=== PATIENT | male | born 2000 | race Caucasian/White ===

== ENCOUNTER → 2020-03-07 10:13 | Outpatient (CLI) | payer BC, SELFPAY ==
--- NOTE | ~2020-03-07 | US_ITS ---
US abdomen complete INDICATION: Generalized abdominal pain PROCEDURE: Realtime right upper abdominal ultrasound. COMPARISON: No prior studies for comparison. FINDINGS: The pancreas is normal without focal mass or pancreatic ductal dilation. Liver echotexture is normal without focal mass or intrahepatic biliary dilatation. There is normal directional flow i n the portal vein. Gallbladder contains an echogenic nonmobile, nonshadowing 6 mm mass consistent with a polyp. No galls tones, gallbladder wall thickening or pericholecystic fluid. Common bile duct measures 2 mm. No son ographic Jinag's sign. Visualized aspects of the abdominal aorta and IVC are normal. Spleen is normal. Renal echotexture wit hin normal limits bilaterally without hydronephrosis, contour deforming mass or renal calculi. Right kidney measures 9.5 cm. Left kidney measures 10.5 cm. IMPRESSION: 1: Gallbladder polyp measuring 6 mm. Otherwise, unremarkable abdominal ultrasound. Reviewed, dictated and finalized at location A. CTOR SALES SUPPORT IMPRESSION: 1: Gallbladder polyp measuring 6 mm. Otherwise, unremarkable abdominal ultrasou nd.
== END ==
PROVIDERS: PCP Nurse Practitioner Family; Visit Provider Nurse Practitioner Family
DX: R10.9 Unspecified abdominal pain (principal); R11.2 Nausea with vomiting, unspecified; K82.4 Cholesterolosis of gallbladder
CPT/HCPCS: 76700

== ENCOUNTER 2024-10-01 21:16 | Emergency (ER) | payer BC, SELFPAY ==
--- NOTE | ~2024-10-01 | US_ITS ---
US scrotum doppler INDICATION: Bilateral testicular pain. Evaluate for torsion. TECHNIQUE: Testicular sonogram utilizing grayscale and color Doppler FINDINGS: The testes are normal in size and appearance. No focal lesions are seen. The right testes measures 4.2 x 4 x 2.1 cm centimeters, and the left testis measures 3.5 x 1.7 x 2.8 cm cm. There is n ormal vascular flow to both testes. The right and left epididymides appear normal. Small left hydrocele. No evidence for varicocele. IMPRESSION: 1. Small left hydrocele. Reviewed, dictated and finalized at location A. IMPRESSION: 1. Small left hydrocele.
--- OUTSIDE RECORDS SUMMARY | 2024-10-01 21:18 | XMS_ITS | Clinical Summary ---
Author Organization [facility] Address [address] [place] [address] Care Team Providers Care Mainspring Fabrication Supervisor Name Role Phone Alana Rivera MD Primary Care Provider [phone] Allergies No known active allergies Medications dicyclomine (BENTYL) 10 MG Capsule Take 1 Capsule by mouth 3 times daily as needed (Abdominal cramping). 90 Capsule 3 2 Active PEG 6145-WYx-CiYzs- NaCl-NaSulf 240 g Recon Soln Use as directed by office 4000 mL 2 Active fluticasone (Flovent HFA) 220 MCG/ACT Aerosol take 4 Puffs by inhalation 2 times daily. Squirt in back of throat and swallow. Nothing to eat or drink 30 min after. 12 g 6 2 Active omeprazole (PriLOSEC) 20 MG CAPSULE DELAYED RELEASE Take 1 Capsule by mouth 2 times daily. 180 Capsule 2 2 Active Active Problems No known active problems Immunizations Immunization Administration Dates Next Due Influenza Vaccine, Quadrivalent, PF 11/29/2021,1 03/30/2013 Meningococcal Vaccine 09/26/2016 Varicella Vaccine Live 11/28/2013 Social History Tobacco Use Types Packs/Day Years Used Date Smoking Tobacco: Every Day Smokeless Tobacco: Never Tobacco Cessation:Ready to Q uit: No; Counseling Given: No Alcohol Use Standard Drinks/Week Comments Yes 3 (1 standard drink = 0.6 oz pur e alcohol) Sex and Gender Information Value Date Recorded Sex Assigned at Not on file Legal Sex Male 5:07 PM LACE BURN OUT TENDER Gender Identity Not on file Sexual Orientation Not on file Last Filed Vital Signs Vital Sign Reading Time Taken Comments Blood Pressure 110/61 02/15/2022 5:12 PM LACE BURN OUT TENDER Pulse 51 02/15/2022 5:12 PM LACE BURN OUT TENDER Temperature 36.2 C (97.2 F) 02/15/2022 4:41 PM LACE BURN OUT TENDER Respiratory Rate 16 02/15/2022 5:12 PM LACE BURN OUT TENDER Oxygen Saturation 100% 02/15/2022 5:12 PM LACE BURN OUT TENDER Inhaled Oxygen Concentration - - Weight 63.5 kg (140 lb) 02/15/2022 2:37 PM LACE BURN OUT TENDER Height 170.2 cm (5' 7) 02/15/2022 2:37 PM LACE BURN OUT TENDER Body Mass Index 21.93 02/15/2022 2:37 PM LACE BURN OUT TENDER Plan of Treatment Health Maintenance Due Date Last Done Comments Hepatitis C Virus (HCV) Screening 1999 TdaP Immunization 1999 Human Papillomavirus (HPV) Immunization (1 - Male 3-dose series) 10/13/2014 Hepatitis B Immunization (1 of 3 - 19+ 3-dose series) 10/13/2018 SARS-COV-2 Immunization ( season) 2023 03/30/2021, 07/08/2020, 06/17/2020 Influenza Immunization (#1) 11/11/202411/11, 01/28/2014 Respiratory Syncytial Virus (RSV) Immunization (Adult) (1 - 1-dose 75+ series) 10/13/2074 Meningococcal Immunization (ACWY) Completed 09/26/2016 Pneumococcal Immunization Combined Aged Out No longer eligible b ased on patient's age to complete this topic Rotavirus Immunization Aged Out No lo nger eligible based on patient's age to complete this topic Insurance [facility] Care Teams Mainspring Fabrication Supervisor Relationship Specialty Start Date End Date Alana Rivera MD [address] [place] [address] PCP - General Sports Medicine 04/10/19
--- OUTSIDE RECORDS SUMMARY | 2024-10-01 21:18 | XMS_ITS | Encounter Summary ---
Author Organization [facility] Address [address] [place] [address] Phone Care Team Providers Care Contracting Engineer Name Role Phone Alana Rivera MD Primary Care Provider [phone] Encounter Details Date Type Department Care Team (Late st Contact Info) Description 06/10/2020 Lab Requisition [facility] [address] [place] [address] Alana Rivera MD [address] [place] [address] Social History Tobacco Use Types Packs/Day Years Used Date Smoking Tobacco: Never Assessed Sex and Gender Information Value Date Recorded Sex Assigned at Not on file Legal Sex Male 5:07 PM DREDGE OR BARGE SHORE HAND Gender Identity Not on file Sexual Orientation Not on file documented as of this encounter Plan of Treatment Not on file documented as of this encounter Procedures Procedure Name Priority Date/Time Associated Diagnosis Comments SARS-COV-2 BY MOLECULAR Routine 06/10/2020 12:20 PM CDT documented in this encounter Results * SARS-COV-2 BY MOLECULAR (06/10/2020 12:20 PM CDT) SARSCOV2 NOT DETECTED (Referen ce Range for this test is Not Detected ) [facility] THERMOFISHER FAST DX 06/10/2020 8:23 PM CDT [facility] Comment:This test was perfor med by a RT-PCR method. Other 06/10/2020 12:2 0 PM CDT 06/10/2020 2:51 PM CDT Narrative [facility] - 06/10/2020 8:23 PM CDT Authorized Fact Sheets about this test for providers and patients are available at: https://www.fda.gov/medical-devices/xvpndhmgs-ynxsvxaqeh-hxawzge-devices/emergen -us e-authorizations us Alana Rivera MD MICROBIOLOGY - [facility] Final Result [facility] [address] [address], [place] documented in this encounter Visit Diagnoses Not on filedocumented in this encounter Additional Health Concerns Infection Onset Date Last Indicated Resolved Time COVID - 19 06/10/2020 06/10/2020 06/30/2020 12:1 8 AM CDT documented as of this encounter Care Teams Contracting Engineer Relationship Specialty Start Date End Date Alana Rivera MD [address], [place] [address] PCP - General Sports Medicine 04/10/19 documented as of this encounter
--- OUTSIDE RECORDS SUMMARY | 2024-10-01 21:18 | XMS_ITS | Clinical Summary ---
Author Organization [facility] Address [address] [place] [address] Care Team Providers Care Supervisor Poultry Processing Name Role Phone Radha Washington MD Primary Care Provider [phone] Source Comments [facility],non-owned Affiliates and Associated Physician Practices is amultiple site organization consisting of ambulatory clinics and hospital sitesin [place], [place], [place] and [place]. This disclosure is being madepursuant to the Care Everywhere program and may not contain all information available regarding this patient. Last updated 17.[facility] Allergies No known active allergies Medications * Be aware that medications may not be up to date on this document. Alwaysverify current medications with the patient. No known medications Social History Tobacco Use Types Packs/Day Years Used Date Smoking Tobacco: Never Assessed Sex and Gender Information Value Date Recorded Sex Assigned at Not on file Legal Sex Male 3:16 PM SOFT SUGAR SUPERVISOR Gender Identity Not on file Sexual Orientation Not on file Last Filed Vital Signs Vital Sign Reading Time Taken Comments Blood Pressure 118/53 05/18/2012 4:30 PM SOFT SUGAR SUPERVISOR Pulse 76 05/18/2012 4:30 PM SOFT SUGAR SUPERVISOR Temperature 36.1 C (97 F) 05/18/2012 4:30 PM SOFT SUGAR SUPERVISOR Respiratory Rate 16 05/18/2012 4:30 PM SOFT SUGAR SUPERVISOR Oxygen Saturation - - Inhaled Oxygen Concentration - - Weight 47.8 kg (105 lb 6.1 oz) 05/18/2012 4:30 P M SOFT SUGAR SUPERVISOR Height - - Body Mass Index - - Plan of Treatment Health Maintenance Due Date Last Done Comments HIV SCREENING 10/13/2014 HPV VACCINE (1 - Male 3-dose series) 10/13/2014 HEPATITIS C SCREENING 10/09/2017 DTAP/TDAP/TD VACCINES (1 - Tdap) 10/13/2018 HEPATITIS B VACCINE (1 of 3 - 19+ 3-dose series) 10/13/2018 COVID-19 VACCINE (1 - 2023-2 5 season) 2023 DEPRESSION SCREENING 03/13/2024 INFLUENZA VACCINE (#1) 2024 ZOSTER VACCINE (1 of 2) 10/13/2049 HIB VACCINE Aged Out No longer eligi ble based on patient's age to complete this topic MENINGOCOCCAL (Group B) VACC INE SHARED DECISION-MAKING Aged Out No longer eligibl e based on patient's age to complete this topic MENINGOCOCCAL GROUPS A/C/Y/W VACCINE Aged Out No longer eligible b ased on patient's age to complete this topic PNEUMOCOCCAL VACCINE Aged Out No long er eligible based on patient's age to complete this topic Insurance MEDICAID - [place] Care Teams Supervisor Poultry Processing Relationship Specialty Start Date End Date Radha Washington MD [address] [place] [address] [address] [place] [address] PCP - General Family Medicine 05/18/12
--- OUTSIDE RECORDS SUMMARY | 2024-10-01 21:18 | XMS_ITS | Data Portability ---
Author Organization [facility], Main Office Address [address] [place] [address] Assessment No assessment recorded. Plan of Treatment Reminders Order Date Submit Date Provider Last Modified By Organization Details Last Modified Time Details Appointments None recorded. Lab None recorded. Referral None recorded. Procedures None recorded. Surgeries None recorded. Imaging None recorded. Medication Orders azithromyci n 250 mg tablet 2022 023 [id number] [address] [place], [address], 3 10:09:54 Medrol (Marcos) 4 mg tablets in a dose pack 2022 023 [id number], [address] [place], [address], 3 10:09:55 albuterol sulfate HFA 90 mcg/actuati on aerosol inhaler 2022 023 [id number], [address] [place], [address], 3 10:09:54 fluticasone propionate 50 mcg/actuati on nasal spray,suspe nsion 2022 023 [id number] [address] [place], [address], 3 10:09:54 Patient TargetsNo targets recorded. Patient InstructionsNo instructions recorded. Reason for Referral None Reported. Problems Name Problem SNOMED Code Status Onset Date Resolution Date Notes Provider Name and Address Organization Details Recorded Time Bronchitis 42899383 Active 2022 MERLE Larson [address], [address], [place], [address], [email or web address] 3 09:59:52 Middle ear effusion 1364890854 Active 2022 MERLE Larson [address], [address], [place], [address], [email or web address] 3 10:03:12 Sore throat 621609232 Active 2022 Samuel Ramos, [facility] TECHNICIAN-C [address], [address], [place], [address], [email or web address] 3 08:56:53 Problem Notes None recorded. Medical Equipment None Reported. Allergies No known drug allergies Medications Name Sig Start Date Stop Date Status Note LastModified by Organization Details LastModified Time doxycycli ne hyclate 100 mg capsule 06/30 completed Not Available Not Available Not Available trazodone 50 mg tablet TAKE 1 TABLET BY MOUTH EVERYDAY AT BEDTIME active Not Available Not Available No t Available azithromy reynold 250 mg tablet TAKE 2 TABLETS BY MOUTH TODAY, THEN TAKE 1 TABLET DAILY FOR 4 DAYS active Not Available Not Available No t Available ibuprofen 800 mg tablet 06/30 completed Not Available Not Available Not Available hydrocodo ne 5 mg-acetam inophen 325 mg tablet 06/30 completed Not Available Not Available Not Available prednison e 20 mg tablet 06/30 completed Not Available Not Available Not Available penicilli n V potassium 500 mg tablet 06/30 completed Not Available Not Available Not Available amoxicill in 875 mg tablet 06/30 completed Not Available Not Available Not Available benzonata te 100 mg capsule 06/30 completed Not Available Not Available Not Available polymyxin B sulfate 10,000 unit-trim ethoprim 1 mg/mL eye drops INSTILL 1 DROP INTO AFFECTED EYE(S) BY OPHTHALM IC ROUTE EVERY 6 HOURS active Not Available Not Available No t Available fluoxetin e 10 mg capsule TAKE 1 CAPSULE BY MOUTH EVERY MORNING active Not Available Not Available No t Available mirtazapi ne 15 mg tablet TAKE 1 TABLET BY MOUTH EVERYDAY AT BEDTIME 06/30 completed Not Available Not Available Not Available methylpre dnisolone 4 mg tablets in a dose pack TAKE 5 TABS DAY ONE, 4 TABS DAY TWO, 3 TABS DAY THREE, 2 TABS DAY FOUR, 1 TAB DAY FIVE active Not Available Not Available No t Available albuterol sulfate HFA 90 mcg/actua tion aerosol inhaler INHALE 2 PUFFS EVERY 4 HOURS BY INHALATI ON ROUTE. active Not Available Not Available No t Available fluoxetin e 20 mg capsule TAKE 1 CAPSULE BY MOUTH EVERY DAY active Not Available Not Available No t Available fluticaso ne propionat e 50 mcg/actua tion nasal spray,foster pension Starke 1 spray every day by intranas al route. 2022 active Not Available Not Available Not Avai lable dicyclomi ne 10 mg capsule TAKE 1 CAPSULE BY MOUTH 3 TIMES DAILY NEEDED (ABDOMIN AL CRAMPING ). active Not Available Not Available No t Available amoxicill in 875 mg-potass ium clavulana te 125 mg tablet 06/30 completed Not Available Not Available Not Available amoxicill in 500 mg-potass ium clavulana te 125 mg tablet TAKE 1 TABLET BY MOUTH EVERY 12 HOURS WITH FOOD FOR 10 DAYS 06/30 completed Not Available Not Available Not Available bupropion HCl XL 300 mg 24 hr tablet, extended release TAKE 1 TABLET BY MOUTH EVERY DAY active Not Available Not Available No t Available bupropion HCl XL 150 mg 24 hr tablet, extended release Take 1 tablet every day by oral route for 90 days. active Not Available Not Available No t Available Flovent HFA 220 mcg/actua tion aerosol inhaler INHALE 4 PUFFS TWICE DAILY. NOTHING TO EAT OR DRINK 30 MINUTES AFTER active Not Available Not Available No t Available quetiapin e 50 mg tablet TAKE 1 TABLET BY MOUTH EVERYDAY AT BEDTIME 05/28 completed pt not complian t Not Available Not Available Not Available Gavilyte- C 240 gram-22.7 2 gram-6.72 gram-5.84 gram oral solution USE DIRECTED BY OFFICE active Not Available Not Available No t Available Vitals Date Recorded Body height Provider Name an d Address Organization Details Last Updated DateTime 06/30/2020 166.37 cm Not Available [facility] 3 16:28:38 Date Recorded Body height Provider Name an d Address Organization Details Last Updated DateTime 07/28/2020 166.37 cm Not Available [facility] 3 16:28:38 Date Recorded Body weight Body temperature Heart rate Oxygen saturation Oxygen saturation in Arterial blood by Pulse oximetry Systolic And Diastolic Provider Name and Address Organization Details Last Updated DateTime 3 07888.3 8 g 98.2 [degF] 72 /min 98 % 98 % 120/70 mm[Hg] Ania Martínez CMA [email or web address] 3 09:50:14 Social History Question Answer Notes LastModified by Blomming Details LastModified Time Tobacco Smoking Status Never Smoker Ania Martínez CMA null, [email or web address] 10/24/2022 09:52:03 What Is Your Level Of Caffeine Consumption? Moderate [email or web address] Information not available 10/24/2022 When Did You Quit Smoking? 1-5yearssince lastcigarette Information not available 10/24/2022 Have You Ever Been Counseled For Unhealthy Alcohol Use? No [email or web address] Information not available 10/24/2022 Has Tobacco Cessation Counseling Been Provided? No [email or web address] Information not available 10/24/2022 How Many Years Have You Used Smokeless Tobacco? -1 [email or web address] Information not available 10/24/2022 Sex: Unknown Functional Status Question Answer Note LastModified by Blom[employer] Details LastModified Time Do you use any illicit or recreational drugs? No Information not available 10/24/2022 Do you or have you ever used any other forms of tobacco or nicotine? Yes [email or web address] Information not available 10/24/2022 What is your level of alcohol consumption? Occasional [email or web address] Information not available 10/24/2022 Do you or have you ever used smokeless tobacco? Former smokeless tobacco user [email or web address] Information not available 10/24/2022 Do you or have you ever used e-cigarettes or vape? Never used electronic cigarettes [email or web address] Information not available 10/24/2022 Mental Status None recorded. Family History Relationship Description Onset Age of this Age Resolved Age Notes LastModified by Organization Details LastModified Time Paternal Grandfather Congestive heart failure Not available 2022 09:51:13 Maternal Grandfather Congestive heart failure Not available 2022 09:51:13 Medical History No medical history recorded. Immunizations Vaccine Type Date Status Note Provider Nam e and Address Organization Details Recorded Time SARS-COV-2 (COVID-19) vaccine, UNSPECIFIED 1 completed Not Available [facility] 05/11/2022 16:31:22 COVID-19, mRNA, LNP-S, PF, 30 mcg/0.3 mL dose 2 completed Not Available [facility] 05/11/2022 16:31:22 meningococcal MCV4P 7 completed Not Available [facility] 05/11/2022 16:31:23 Influenza, split virus, quadrivalent, PF 4 completed Not Available [facility] 05/11/2022 16:31:23 varicella 4 completed Not Available [facility] 05/11/2022 16:31:24 Past Encounters Encounter ID Performer Location Encounter Start Date Encounter Closed Date Diagnosis/Indication Diagnosis SNOMED-CT Code Diagnosis ICD10 Code Diagnosis Note [id number] Theresa Rockwell MD [facility] Primary Care [place] [address] [place] [address] 06/30/2020 00:00:00 06/30/2020 13:13:18 [id number] Theresa Rockwell MD [facility] Primary [place] [address] [place] [address] 07/28/2020 00:00:00 07/28/2020 12:55:03 [id number] MERLE Larson [facility] Primary [facility] [place] [address] [place] [address] 10/24/2022 09:41:32 10/24/2022 11:28:13 Bronchitis 37715815 J40 New problemSta rt albuterol inhaler. Advised to use prn, but recommend scheduled 4-6hr use for the next 3-4 days. Start PO abx and steroids. Discussed s/s that warrant emergency evaluation . Ok to continue with otc robitussin for cough. Middle ear effusion 1004 113796 H74.8X9 New finding on exam-encou raged warm compresses to face/jawli ne to promote drainage. Ok to take otc pain relievers per package instructio ns to reduce discomfort . Start nasal spray otc anti-hista mines per package instructio ns. Health Concerns Section Related Observation LastModified by Organization Detai ls LastModified Time None Recorded Concern Status LastModified by Organization Details LastModified Time None Recorded Advance Directives Directive None Recorded Payers Insurance Date Sequence Insurance Name Policy Number Policy Zuñiga Covered Member ID Zuñiga Member ID Guarantor Name 11/04/2022 1 [place] [id number] Rene Nails [id number] Pranav Nails Notes Date Note Type Note Provider Name and Address Organization Details Recorded Time 10/24/2022 text/html 1. Pt in office for problem visit with c/o having cough, chest congestion for several weeks despite otc Nyquil/Dayquil. Pt states fever of 100.0 a couple of weeks ago. Did not test for covid/flu. MERLE Larson [address], [place], [address], [place] [facility] 10/24/2022 20:34:46
[2024-10-01 21:42] VITALS: BP 150/81; PULSE 57; RESP 16; TEMP 36.6; O2SAT 100
[2024-10-02] MEDS: KETOROLAC 30 MG/ML VIAL (*BKC) IV PUSH (02:35)
[2024-10-02 02:40] LABS: Hematocrit 42.9 % (42.0-52.0); Hemoglobin 14.3 g/dL (14.0-18.0); Immature Granulocyte Percent A 0.1 % (0-0.5); Lymphocytes Absolute Auto 3.20 K/mm3 (0.9-3.2); Mean Corpuscular HGB Conc 33.3 g/dl (32-36); Mean Corpuscular Hemoglobin 30.8 pg (26-34); Mean Corpuscular Volume 92.3 fl (80-100); Nucleated Red Blood Cells Absolute Auto 0.000 K/mm3 (0.0-0.012); Nucleated Red Blood Cells Perc 0.0 % (0.0-0.2); Platelet Count Result 314 k/mm3 (150-375); Red Blood Count 4.65 M/mm3 (4.6-6.20); White Blood Count 7.9 K/mm3 (4.5-10.0)
[2024-10-02 02:52] LABS: INR 1.0; Prothrombin Time 13.1 Seconds (11.1-14.7)
[2024-10-02 02:53] LABS: Partial Thromboplastin Time 28.7 Seconds (22.3-36.8)
[2024-10-02 03:02] VITALS: BP 121/66; PULSE 87; RESP 18; O2SAT 100
[2024-10-02 03:05] LABS: Alanine Aminotransferase 25 U/L (6-50); Albumin Level 4.8 g/dL (3.5-5.1); Alkaline Phosphatase 97 U/L (38-126); Anion Gap 9 mmol/L (4-12); Aspartate Amino Transferase 36 U/L (17-59); Bilirubin,Total 0.6 mg/dL (0.2-1.3); Blood Urea Nitrogen 15 mg/dL (9-20); Calcium 9.5 mg/dL (8.4-10.2); Carbon Dioxide 25 mmol/L (22-30); Chloride 101 mmol/L (98-107); Estimated CRCL calculation 87 ml/min; Estimated Glomerular Filt Rate > 60; Glucose 87 mg/dL (65-110); Magnesium 2.2 mg/dL (1.6-2.3); Potassium 3.8 mmol/L (3.4-5.0); Sodium 135 mmol/L (137-145); Total Protein 8.6 g/dL (6.3-8.2)
[2024-10-02] MEDS: SODIUM CHLORIDE 0.9% IV 1,000 ML 999 ML IV CONT (03:05)
--- OUTSIDE RECORDS SUMMARY | 2024-10-02 03:09 | XMS_ITS | Clinical Summary ---
Author Organization [facility] Address [address] [place] [address] Care Team Providers Care Thread Pulling Machine Attendant Name Role Phone Alana Rivera MD Primary Care Provider [phone] Allergies No known active allergies Medications dicyclomine (BENTYL) 10 MG Capsule Take 1 Capsule by mouth 3 times daily as needed (Abdominal cramping). 90 Capsule 3 2 Active PEG 7829-RLl-ZqSwy- NaCl-NaSulf 240 g Recon Soln Use as [...] on file Legal Sex Male 5:07 PM NAIL MAKING MACHINE TENDER Gender Identity Not on file Sexual Orientation Not on file Last Filed Vital Signs Vital Sign Reading Time Taken Comments Blood Pressure 110/61 02/15/2022 5:12 PM NAIL MAKING MACHINE TENDER Pulse 51 02/15/2022 5:12 PM NAIL MAKING MACHINE TENDER Temperature 36.2 C (97.2 F) 02/15/2022 4:41 PM NAIL MAKING MACHINE TENDER Respiratory Rate 16 02/15/2022 5:12 PM NAIL MAKING MACHINE TENDER Oxygen Saturation 100% 02/15/2022 5:12 PM NAIL MAKING MACHINE TENDER Inhaled Oxygen Concentration - - Weight 63.5 kg (140 lb) 02/15/2022 2:37 PM NAIL MAKING MACHINE TENDER Height 170.2 cm (5' 7) 02/15/2022 2:37 PM NAIL MAKING MACHINE TENDER Body Mass Index 21.93 02/15/2022 2:37 PM NAIL MAKING MACHINE TENDER Plan of Treatment Health Maintenance Due [...] patient's age to complete this topic Insurance [facility] Care Teams Thread Pulling Machine Attendant Relationship Specialty Start Date End Date Alana Rivera MD [address] [place] [address] PCP - General Sports Medicine 04/10/19
--- OUTSIDE RECORDS SUMMARY | 2024-10-02 03:09 | XMS_ITS | Encounter Summary ---
Author Organization [facility] Address [address] [facility] [place] [address] Phone Care Team Providers Care Emt Driver Name Role Phone Alana Rivera MD Primary Care Provider [phone] Encounter Details Date Type Department Care Team (Late st Contact Info) Description 06/10/[address] [facility] Services [address] [place] [address] Alana Rivera MD [address] [place] [address] Social History Tobacco Use Types Packs/Day Years Used Date Smoking Tobacco: Never Assessed Sex and Gender Information Value Date Recorded Sex Assigned at Not on file Legal Sex Male 5:07 PM EVALUATION ADVISOR Gender Identity Not on file Sexual Orientation [...] for this test is Not Detected ) [facility] THERMOFISHER FAST DX 06/10/2020 8:23 PM CDT [facility] Comment:This test was perfor med by a RT-PCR method. Other 06/10/2020 12:2 0 PM CDT 06/10/2020 2:51 PM CDT Narrative [facility] - 06/10/2020 8:23 PM CDT Authorized Fact Sheets about this test for providers and patients are available at: https://www.fda.gov/medical-devices/pzynbolil-qfaatckweq-scuvxkx-devices/emergen -us e-authorizations us Alana Rivera MD MICROBIOLOGY - [facility] Final Result [facility] [address] [address], [place] documented in this encounter Visit Diagnoses Not on filedocumented in this encounter Additional Health Concerns Infection Onset Date Last Indicated Resolved Time COVID - 19 06/10/2020 06/10/2020 06/30/2020 12:1 8 AM CDT documented as of this encounter Care Teams Emt Driver Relationship Specialty Start Date End Date Alana Rivera MD [address], [place] [address] PCP - General Sports Medicine 04/10/19 documented as of this encounter
--- OUTSIDE RECORDS SUMMARY | 2024-10-02 03:09 | XMS_ITS | Clinical Summary ---
Author Organization [facility] [employer] Address [address] [place] [address] Care Team Providers Care Package Sorter Name Role Phone Radha [place] MD Primary Care Provider [phone] Source Comments [facility] [employer],non-owned Affiliates and Associated Physician Practices is amultiple site organization consisting of ambulatory clinics and hospital sitesin [place], [place], [place] and [place]. This disclosure is being madepursuant to the Care Everywhere program and may not contain all information available regarding this patient. Last updated 17.[facility] [employer] Allergies No known active allergies Medications * Be aware that medications may not be up to date on this document. Alwaysverify current medications with the patient. No known medications Social History Tobacco Use Types Packs/Day Years Used Date Smoking Tobacco: Never Assessed Sex and Gender Information Value Date Recorded Sex Assigned at Not on file Legal Sex Male 3:16 PM [employer]ERSONAL [employer] Gender Identity Not on file Sexual Orientation Not on file Last Filed Vital Signs Vital Sign Reading Time Taken Comments Blood Pressure 118/53 05/18/2012 4:30 PM PERSONAL [employer]IST Pulse 76 05/18/2012 4:30 PM PERSONAL [employer] SPECIALIST Temperature 36.1 C (97 F) 05/18/2012 4:30 PM PERSONAL [employer] SPECIALIST Respiratory Rate 16 05/18/2012 4:30 PM PERSONAL PROTECTION SPECIALIST Oxygen Saturation - - Inhaled Oxygen Concentration - - Weight 47.8 kg (105 lb 6.1 oz) 05/18/2012 4:30 P M [employer]ERSON[employer] SPECIALIST Height - - Body Mass Index - [...] topic Insurance MEDICAID - [place] Care Teams Package Sorter Relationship Specialty Start Date End Date Radha [place] MD [address] [place] [address] [address] [place] [address] PCP - General Family Medicine 05/18/12
--- NOTE | 2024-10-02 03:21 | ED.MALEGU ---
HPI - Male Genitourinary General Chief complaint: Urogenital-Male Stated complaint: sharp testicular/pelvic pain Time Seen by Provider: 10/02/24 01:59 History of Present Illness HPI Narrative: 23-year-old male presenting with intermittent testicular pain since brought 8:00 p.m.. He states that he was not doing anything particularly exertional strenuous. States that he feels pain more so in his left testicle and is positional in nature. States that it feels better when he lies down. No penile pain or burning with urination. No penile discharge. No testicular masses or enlargement he has noticed. Denies any direct trauma. No history of testicular torsion or any surgeries in infancy or adulthood. Was otherwise in his normal state of health. No associated nausea, vomiting, back pain, fever, chills. Related Data Allergies Allergy/AdvReac Type Severity Reaction Status Date / Time No Known Allergies Allergy Unknown Verified 10/01/24 21:46 Review of Systems Review of Systems: As reviewed above in HPI Exam Narrative: GENERAL: [Well-appearing, well-nourished, and in no acute distress.] HEAD: [Normocephalic, atraumatic.] EYES: [PERRLA and EOMI.] ENT: Nares clear, no rhinorrhea or epistaxis. Mucous membranes moist. NECK: Supple. CHEST: [Clear to auscultation. No respiratory distress.] HEART: [Regular rate and rhythm]. No murmur heard. [Normal peripheral pulses.] ABDOMEN: [Soft, nondistended], [nontender], [No rigidity or guarding] : Left testicle is tender to palpation around the epididymis but no enlargement. Cremaster reflexes are intact bilaterally. No overlying cellulitis or skin changes. No palpable masses in the testicle or scrotum. No palpable mass in the inguinal canal. Negative per and sign. No penile discharge or penile tenderness. EXTREMITIES: Normal range of motion. [No edema.] SKIN: Warm, dry, no rash. NEURO: [No focal deficits]. Alert and oriented [x3.] PSYCH: [Normal mood and affect.] Course Vital Signs Vital signs: Vital Signs Temperature 36.6 C 10/01/24 21:42 Pulse Rate 57 L 10/01/24 21:42 Respiratory Rate 16 10/01/24 21:42 Blood Pressure 150/81 H 10/01/24 21:42 Pulse Oximetry 100 10/01/24 21:42 Oxygen Delivery Room Air 10/01/24 21:42 Temperature 36.6 C 10/01/24 21:42 Pulse Rate 76 10/02/24 03:31 Respiratory Rate 18 10/02/24 03:31 Blood Pressure 121/66 10/02/24 03:31 Pulse Oximetry 100 10/02/24 03:31 Oxygen Delivery Room Air 10/01/24 21:42 MDM - Male Genitourinary MDM Narrative Medical decision making narrative: 23-year-old male presenting with intermittent testicular pain since brought 8:00 p.m.. He states that he was not doing anything particularly exertional strenuous. States that he feels pain more so in his left testicle and is positional in nature. States that it feels better when he lies down. No penile pain or burning with urination. No penile discharge. No testicular masses or enlargement he has noticed. Denies any direct trauma. No history of testicular torsion or any surgeries in infancy or adulthood. Was otherwise in his normal state of health. No associated nausea, vomiting, back pain, fever, chills. Left testicle is tender to palpation around the epididymis but no enlargement. Cremaster reflexes are intact bilaterally. No overlying cellulitis or skin changes. No palpable masses in the testicle or scrotum. No palpable mass in the inguinal canal. Negative per and sign. No penile discharge or penile tenderness. Hemodynamically stable without any fever. Ultrasound of the scrotum was obtained to further rule out testicular torsion although clinically appears to be more epididymitis or orchitis. Possibility of a sexually transmitted infection as well or urinary tract infection. Urine sample sent of, IV was established he was given Toradol for analgesia and laboratory studies placed. Ultrasound was called in for scrotal ultrasound at this time. No leukocytosis or anemia. Normal platelet count. Coags are normal. Normal kidney function, normal electrolytes, normal hepatic function. Urinalysis without signs of infection. STD panel negative. Patient had significant improvement after Toradol. Ultrasound report shows left complicated hydrocele secondary to spermatocele with a simple right hydrocele otherwise no torsion or evidence orchitis. Discussed findings with the patient and the family at bedside and plan of care for anti-inflammatory control, referral for Urology and conservative therapy until seen by Urology for other recommendations if not improving. Patient and family comfortable with plan and safely discharged. Medical Records Attestation: I reviewed the patient's medical records. Lab Data Attestation: I reviewed the patient's lab results. 10/02/24 02:34 10/02/24 02:34 Labs: Lab Results 10/02/24 10/02/24 Range/Units 02:34 03:52 WBC 7.9 (4.5-10.0) K/mm3 RBC 4.65 (4.6-6.20) M/mm3 Hgb 14.3 (14.0-18.0) g/dL Hct 42.9 (42.0-52.0) % MCV 92.3 (80-100) fl MCH 30.8 (26-34) pg MCHC 33.3 (32-36) g/dl RDW 12.7 (11.5-14.5) % Plt Count 314 (150-375) k/mm3 MPV 9.0 (7.4-10.4) fl Immature Gran % (Auto) 0.1 (0-0.5) % Neut % (Auto) 40.1 L (45.5-73.1) % Lymph % (Auto) 40.7 (18.3-44.2) % [place] % (Auto) 12.6 H (2.6-8.5) % Eos % (Auto) 5.7 H (0-4.4) % Baso % (Auto) 0.8 (0.2-1.2) % Lymph # (Auto) 3.20 (0.9-3.2) K/mm3 [place] # (Auto) 1.0 H (0.1-0.6) K/mm3 Eos # (Auto) 0.5 H (0-0.3) K/mm3 Baso # (Auto) 0.1 (0.0-0.1) K/mm3 Abs Immat Gran (auto) 0.01 (0.00-0.031) K/mm3 Absolute Neuts (auto) 3.2 (1.3-6.7) K/mm3 Absolute Nucleated RBC 0.000 (0.0-0.012) K/mm3 Nucleated RBC % 0.0 (0.0-0.2) % PT 13.1 (11.1-14.7) Seconds INR 1.0 APTT 28.7 (22.3-36.8) Seconds Sodium 135 L (137-145) mmol/L Potassium 3.8 (3.4-5.0) mmol/L Chloride 101 (98-107) mmol/L Carbon Dioxide 25 (22-30) mmol/L Anion Gap 9 (4-12) mmol/L BUN 15 (9-20) mg/dL Creatinine 0.70 (0.7-1.3) mg/dL Estim Creat Clear Calc 87 ml/min Estimated GFR > 60 (59 - ) Glucose 87 (65-110) mg/dL Calcium 9.5 (8.4-10.2) mg/dL Magnesium 2.2 (1.6-2.3) mg/dL Total Bilirubin 0.6 (0.2-1.3) mg/dL AST 36 (17-59) U/L ALT 25 (6-50) U/L Alkaline Phosphatase 97 (38-126) U/L Total Protein 8.6 H (6.3-8.2) g/dL Albumin 4.8 (3.5-5.1) g/dL Urine Color Yellow (Yellow) Urine Appearance Clear (Clear) Urine pH 6.5 (5.0-9.0) Ur Specific [place] 1.013 (1.001-1.035) Urine Protein Negative (Negative) mg/dL Urine Glucose (UA) Negative (Negative) mg/dL Urine Ketones Negative (Negative) mg/dL Ur Blood (Man) Negative (Negative) Urine Nitrate Negative (Negative) Urine Bilirubin Negative (Negative) Urine Urobilinogen 0.2 (<2.0) mg/dL Leukocyte Esterase Rfl Negative (Negative) ALISON/UL C. trachomatis (PCR) Not detected (NOT DETECTE) N. gonorrhoeae (PCR) Not detected (NOT DETECTE) T. vaginalis (PCR) Not detected (NOT DETECTE) Imaging Data Attestation: I personally reviewed and interpreted this imaging study as follows: My impression: Left spermatocele, small right hydrocele simple Discharge Plan Discharge Clinical Impression: Spermatocele, Left testicular pain Patient Disposition: Home Condition: Stable Instructions: Antibiotic Form, Spermatocele (ED), Spermatocelectomy (DC) Additional Instructions: You have a spermatocele in the left sided tear scrotum which is a backflow of some sperm into a small collection of fluid. No signs of urgency or emergency. No evidence of torsion or decreased blood flow. No issues with fertility or infection. We will treat this with anti-inflammatories and he can also use topical warm compresses or ice if that helps. Follow-up with a urologist for further recommendations if this is not improving with conservative management. Return with any emergent concerns. Patient Language: Arabic Prescriptions: New ketorolac 10 mg tablet 10 mg PO Q8H PRN (Reason: pain) 5 Days Qty: 20 0RF Rx Instructions: maximum total duration of 5 days from all oral, intranasal, or parenteral formulations Follow-up/Referrals: Carter Bernard MD [Physician] - 1 Week (Left spermatocele) Juan Daniel,YADIEL Muniz [Primary Care Provider] - Time of Disposition: 05:35
[2024-10-02 03:31] VITALS: BP 121/66; PULSE 76; RESP 18; O2SAT 100
[2024-10-02 03:58] LABS: Add Urine Microscopic? NO; Appearance Urine Clear (Clear); Glucose Urine UA Negative (Negative); Leukocyte Esterase Ur Negative LEU/UL (Negative); Nitrate Urine Negative (Negative); Specific Grav Ur 1.013 (1.001-1.035)
[2024-10-02 05:02] LABS: Trichomonas Vag PCR NOT DETECTED (NOT DETECTE)
== END 2024-10-02 06:02 | disposition home or self-care (01) ==
PROVIDERS: Emergency Provider Student in an Organized Health Care Education/Training Program; PCP Nurse Practitioner Family
DX: N43.40 Spermatocele of epididymis, unspecified (principal); N43.3 Hydrocele, unspecified
CPT/HCPCS: 36415; 76870; 80053; 81003; 83735; 85025; 85610; 85730; 87491; 87591; 87661; 93976; 96361; 96374; 99284; J1885; J7030